=== PATIENT | male | born 1965 | race Asian ===

== ENCOUNTER → 2023-08-09 | Outpatient (CLI) | payer OTHER | END | disposition home or self-care (01) | LOC: RADMN 14:50 | PROVIDERS: ATTEND Internal Medicine | DX: R76.11 Nonspecific reaction to tuberculin skin test without active tuberculosis (principal); R05.9 Cough, unspecified; Q25.46 Tortuous aortic arch; M47.814 Spondylosis without myelopathy or radiculopathy, thoracic region | CPT/HCPCS: 71045 ==